=== PATIENT | male | born 1995 | race African-American/Black ===

== ENCOUNTER 2019-01-31 08:06 | Emergency (ER) | payer SELFPAY ==
[~2019-01-31] VITALS: Ht 188 cm; Wt 129.3 kg
== END 2019-01-31 08:34 | disposition home or self-care (01) ==
LOC: FSED 08:06
DX: T21.22XA Burn of second degree of abdominal wall, initial encounter (principal); X12.XXXA Contact with other hot fluids, initial encounter; Y92.008 Other place in unspecified non-institutional (private) residence as the place of occurrence of the external cause; F17.210 Nicotine dependence, cigarettes, uncomplicated
CPT/HCPCS: 99283